=== PATIENT | male | born 1965 | race African-American/Black ===

== ENCOUNTER 2016-03-06 10:40 | Emergency (ER) | payer MEDICARE, OTHER ==
[~2016-03-06] VITALS: Ht 185.4 cm; Wt 116.1 kg
[2016-03-06] MEDS ORDERED: DILANTIN100 MG ORAL (10:56)
[2016-03-06] MEDS ORDERED: HUMALOG 75/255 UNIT1 SUBQ (10:56)
[2016-03-06] MEDS ORDERED: METFORMIN HCL1000 M1 ORAL (10:56)
[2016-03-06] MEDS ORDERED: ASPIR 8181 MG ORAL (10:56)
[2016-03-06] MEDS ORDERED: ACETAMINOPHEN-1 EAC1 ORAL (11:28)
[2016-03-06] MEDS ORDERED: Tylenol #3 tab (300mg/30mg) ORAL ONE (11:30)
[2016-03-06 11:40] VITALS: BP 132/80
[2016-03-06 11:44] VITALS: BP 132/80
--- NOTE | 2016-03-07 07:56 | Emergency Room Report ---
History of Present Illness General Chief Complaint: Lower Extremity Injury Source: Patient Present Illness HPI 50-year-old male presents ED complaining of pain to both legs x5 days. Denies trauma. Has history of diabetes and diabetic neuropathy. Takes gabapentin states it is not helping. States the pain as a 10 out of 10, sharp, electric in nature, radiating from the feet up to both thighs bilaterally. No aggravating relieving factors. accucheck in ED is 283. Denies any other associated symptoms Allergies: Coded Allergies: No Known Allergies (Unverified , 03/06/16) Patient History Past Medical History: DM, seizures Past Surgical History: none Pertinent Family History: none Social History: Denies: alcohol use, drug use, smoking Immunizations: UTD Reviewed Nursing Documentation: PMH: Agreed, PSxH: Agreed Nursing Documentation-PMH Hx Diabetes: Yes Hx Seizures: Yes Review of Systems All Other Systems: negative except mentioned in HPI Physical Exam Vital Signs Date Time Temp Pulse Resp B/P Pulse Ox O2 Delivery O2 Flow Rate FiO2 03/06/16 10:49 98.1 131 20 100 Room Air 03/06/16 11:40 132/80 Sp02 EP Interpretation: reviewed, normal General Appearance: alert, GCS 15, non-toxic, mild distress Head: normocephalic, atraumatic Eyes: bilateral eye PERRL, bilateral eye normal inspection ENT: hearing grossly normal, normal pharynx, no angioedema, normal voice Neck: full range of motion, supple/symm/no masses Respiratory: chest non-tender, lungs clear, normal breath sounds, speaking full sentences Cardiovascular #1: regular rate, rhythm, no edema Cardiovascular #2: 2+ carotid (R), 2+ carotid (L), 2+ radial (R), 2+ radial (L) , 2+ dorsalis pedis (R), 2+ dorsalis pedis (L) Gastrointestinal: normal bowel sounds, non tender, soft, non-distended, no guarding, no rebound Rectal: deferred Genitourinary: normal inspection, no CVA tenderness Musculoskeletal: back normal, gait/station normal, normal range of motion, non- tender Neurologic: alert, oriented x3, responsive, motor strength/tone normal, sensory intact, speech normal Psychiatric: judgement/insight normal, memory normal, mood/affect normal, no suicidal/homicidal ideation Reflexes: 3+ bicep (R), 3+ bicep (L), 3+ tricep (R), 3+ tricep (L), 3+ knee (R) , 3+ knee (L) Skin: normal color, no rash, warm/dry, well hydrated Lymphatic: no adenopathy Medical Decision Making Diagnostic Impression: Primary Impression: Diabetic neuropathy Qualified Codes: E13.49 - Other specified diabetes mellitus with other diabetic neurological complication Additional Impression: Opioid dependence Qualified Codes: F11.29 - Opioid dependence with unspecified opioid-induced disorder ER Course 50-year-old male presents to ED with bilateral leg pain. No trauma. History of diabetic neuropathy Differential-diabetic neuropathy, chronic pain, uncontrolled diabetes Patient placed on stretcher. After initial history physical exam reveals an middle-aged male in mild distress. Full range of motion in bilateral lower extremities. No sensory deficit noted. No signs of foot ulcer skin breakdown. accucheck in ED is 283. I reviewed CURES; patient has multiple narcotic prescriptions filled on a monthly basis. Agreed to provide the patient with Tylenol No. 3 here and will discharge him with a three-day supply of Tylenol No. 3. He understands he will not receive anything stronger needs to followup with his PMD Patient understands the importance of tight glycemic control Diagnosis-diabetic neuropathy, opioid dependence Stable and discharged to home. Followup with PMD. Return to ED if symptoms recur or worsen Last Vital Signs Date Time Temp Pulse Resp B/P Pulse Ox O2 Delivery O2 Flow Rate FiO2 03/06/16 11:44 98.1 107 16 132/80 95 Room Air Status: improved Disposition: HOME, SELF-CARE Condition: Stable Scripts Acetaminophen With Codeine (T#3) (TYLENOL #3 TAB*) Y Tab 1 TAB ORAL Q8H Y for For Pain, #20 TAB Prov: SHIRLEY JORDAN M.D. 03/06/16 Patient Instructions: Diabetic Neuropathy SHIRLEY JORDAN M.D. Mar 07, 2016 07:56
== END 2016-03-06 11:45 | disposition home or self-care (01) ==
LOC: EMR 11:21
DX: E13.49 Other specified diabetes mellitus with other diabetic neurological complication (principal); M79.604 Pain in right leg; F11.29 Opioid dependence with unspecified opioid-induced disorder; Z86.69 Personal history of other diseases of the nervous system and sense organs
CPT/HCPCS: 82962; 99283

== ENCOUNTER 2016-03-27 01:16 | Emergency (ER) | payer MEDICARE, OTHER ==
[~2016-03-27] VITALS: Ht 185.4 cm; Wt 104.3 kg
[~2016-03-27 01:16] MED LIST: ACETAMINOPHEN-1 EAC1 ORAL; ASPIR 8181 MG ORAL; DILANTIN100 MG ORAL; HUMALOG 75/255 UNIT1 SUBQ; METFORMIN HCL1000 M1 ORAL
[2016-03-27 02:00] VITALS: BP 155/89
[2016-03-27] MEDS ORDERED: Ketorolac 30mg Inj IM ONE (02:00)
[2016-03-27] MEDS ORDERED: Morphine Sulfate 4mg/ml Inj IM ONE (02:00)
[2016-03-27 02:03] VITALS: BP 155/89
--- NOTE | 2016-03-30 07:12 | Emergency Room Report ---
History of Present Illness General Chief Complaint: Pain Source: Patient Present Illness HPI 51-year-old male presents to ED complaining of bilateral leg pain times one week. Denies trauma. Notes tingling, electric sensations in his bilateral feet radiating up his legs. Patient states he has history of diabetes and neuropathy. States that pain is sharp. 10 out of 10. Radiating up the legs bilaterally. No aggravating relieving factors. Denies fevers or chills. Denies leg or motor weakness. Denies bowel or bladder incontinence. States that his pain medications and gabapentin are not helping. Denies any other associated symptoms Allergies: Coded Allergies: No Known Allergies (Unverified , 03/06/16) Patient History Past Medical History: DM, seizures Past Surgical History: none Pertinent Family History: none Social History: Denies: alcohol use, drug use, smoking Immunizations: UTD Reviewed Nursing Documentation: PMH: Agreed, PSxH: Agreed Nursing Documentation-PMH Hx Diabetes: Yes Hx Seizures: Yes Review of Systems All Other Systems: negative except mentioned in HPI Physical Exam Vital Signs Date Time Temp Pulse Resp B/P Pulse Ox O2 Delivery O2 Flow Rate FiO2 03/27/16 01:34 98.1 97 16 155/89 96 Room Air Sp02 EP Interpretation: reviewed, normal General Appearance: no apparent distress, alert, GCS 15, non-toxic Head: normocephalic, atraumatic Eyes: bilateral eye PERRL, bilateral eye normal inspection ENT: hearing grossly normal, normal pharynx, no angioedema, normal voice Neck: full range of motion, supple/symm/no masses Respiratory: chest non-tender, lungs clear, normal breath sounds, speaking full sentences Cardiovascular #1: regular rate, rhythm, no edema Cardiovascular #2: 2+ carotid (R), 2+ carotid (L), 2+ radial (R), 2+ radial (L) , 2+ dorsalis pedis (R), 2+ dorsalis pedis (L) Gastrointestinal: normal bowel sounds, non tender, soft, non-distended, no guarding, no rebound Rectal: deferred Genitourinary: normal inspection, no CVA tenderness Musculoskeletal: back normal, gait/station normal, normal range of motion, non- tender Neurologic: alert, oriented x3, responsive, motor strength/tone normal, sensory intact, speech normal Psychiatric: judgement/insight normal, memory normal, mood/affect normal, no suicidal/homicidal ideation Reflexes: 3+ bicep (R), 3+ bicep (L), 3+ tricep (R), 3+ tricep (L), 3+ knee (R) , 3+ knee (L) Skin: normal color, no rash, warm/dry, well hydrated Lymphatic: no adenopathy Medical Decision Making Diagnostic Impression: Primary Impression: Diabetic neuropathy Qualified Codes: E13.49 - Other specified diabetes mellitus with other diabetic neurological complication Additional Impression: Opioid dependence Qualified Codes: F11.20 - Opioid dependence, uncomplicated ER Course Hospital Course 51-year-old male presents to ED with bilateral leg pain. History of neuropathy. No evidence of trauma Differential diagnoses include: Opioid dependence, diabetic neuropathy, malingering Clinical course Patient placed on stretcher. After initial history and physical I reviewed EMR. Patient has been here once before, seen by myself for similar presentation. I reviewed CURES and patient receives narcotic prescriptions on a monthly basis. Patient given pain medications here. However patient understands that he will not receive any prescriptions. Needs to followup with PMD Diagnosis - diabetic neuropathy, opioid dependence Stable and discharged to home. Followup with PMD. Return to ED if symptoms recur or worsen Last Vital Signs Date Time Temp Pulse Resp B/P Pulse Ox O2 Delivery O2 Flow Rate FiO2 03/27/16 02:03 98.1 82 16 155/89 96 Room Air Status: improved Disposition: HOME, SELF-CARE Condition: Stable Referrals: NOT CHOSEN IPA/,REFERRING (PCP) Patient Instructions: Diabetic Neuropathy SHIRLEY JORDAN M.D. Mar 30, 2016 07:12
== END 2016-03-27 02:03 | disposition home or self-care (01) ==
LOC: EMR 02:00
DX: E11.40 Type 2 diabetes mellitus with diabetic neuropathy, unspecified (principal); F11.20 Opioid dependence, uncomplicated
CPT/HCPCS: 96372; 99283; J1885; J2270

== ENCOUNTER 2016-06-03 21:49 | Emergency (ER) | payer MEDICARE, OTHER ==
[~2016-06-03] VITALS: Ht 185.4 cm; Wt 95.3 kg
[2016-06-03] MEDS ORDERED: HYDROmorphone 1mg/ml Carpuject IM ONE (22:00)
[2016-06-03] MEDS ORDERED: HYDROCODON-ACE1 EA15 ORAL (22:01)
[2016-06-03] MEDS ORDERED: HALOPERIDOL0.5 MG ORAL (22:02)
--- NOTE | 2016-06-03 22:02 | Emergency Room Report ---
History of Present Illness General Chief Complaint: To Be Triaged Source: Patient Present Illness HPI Is a 51-year-old male with poorly toe diabetes. He also has severe neuropathy and is wheelchair-bound. He presents with chief complaint of lower leg pain and numbness. This is on going issue but worse the last few days where he can' t sleep. He taking gabapentin and Tylenol with Codeine is not helping. Denies any trauma. Denies any fever or chills. Denies any edema. Pain is 10 out of 10. patient said that his hemoglobin A1c was 12, but now 10 two months ago. He has lost about 60 pounds already. Allergies: Coded Allergies: No Known Allergies (Unverified , 03/06/16) Patient History Past Medical History: see triage record, old chart reviewed, DM Past Surgical History: other Pertinent Family History: none Social History: Denies: smoking Immunizations: other Reviewed Nursing Documentation: PMH: Agreed, PSxH: Agreed Nursing Documentation-PMH Hx Diabetes: Yes Hx Seizures: Yes Review of Systems Eye: Denies: blurred vision, eye pain ENT: Denies: ear pain, nose congestion, throat swelling Respiratory: Denies: cough, shortness of breath Cardiovascular: Denies: chest pain, palpitations Gastrointestinal: Denies: abdominal pain, diarrhea, nausea, vomiting Musculoskeletal: Reports: joint pain, muscle pain, muscle stiffness, Denies: back pain Skin: Denies: rash Neurological: Denies: headache, numbness Endocrine: Denies: increased thirst, increased urine Hematologic/Lymphatic: Denies: easy bruising All Other Systems: negative except mentioned in HPI Physical Exam vitals unremarkable Sp02 EP Interpretation: reviewed, normal General Appearance: well appearing, no apparent distress, alert Head: normocephalic, atraumatic Eyes: bilateral eye EOMI, bilateral eye PERRL ENT: hearing grossly normal, normal pharynx Neck: full range of motion, supple, no meningismus Respiratory: chest non-tender, lungs clear, normal breath sounds Cardiovascular #1: regular rate, rhythm, no murmur Gastrointestinal: normal bowel sounds, non tender, no mass, no organomegaly, no bruit, non-distended Musculoskeletal: back normal Neurologic: alert, oriented x3, other - Minimal movement of lower extremities. Psychiatric: mood/affect normal Skin: warm/dry Medical Decision Making Diagnostic Impression: Primary Impression: Diabetic neuropathy Qualified Codes: E13.49 - Other specified diabetes mellitus with other diabetic neurological complication ER Course Patient presents with exacerbation of chronic pain. No evidence of trauma. No evidence of cauda equina syndrome. No evidence of spinal after abscess or neoplastic process. Pain better controlled now. We'll discharge him. He had an MRI done today. Does not know results. Status: improved Disposition: HOME, SELF-CARE Condition: Stable Scripts Hydrocodone/Acetaminophen 5-325* (HYDROCODONE/ACETAMINOPHEN 5-325*) 1 Each Tablet 1 TAB ORAL Q6H Y for For Pain, #30 TAB 0 Refills Prov: AURA BUCHANAN M.D. 06/03/16 Additional Instructions: Followup with your Dr. in 3-7 days. You may benefit from a pain specialist. Return if symptom worsen. AURA BUCHANAN M.D. Jun 03, 2016 22:02
[2016-06-03 22:10] VITALS: BP 140/95
[2016-06-03 22:14] VITALS: BP 140/95
== END 2016-06-03 22:15 | disposition home or self-care (01) ==
LOC: EMR 22:10
DX: E11.40 Type 2 diabetes mellitus with diabetic neuropathy, unspecified (principal); G89.29 Other chronic pain; M79.669 Pain in unspecified lower leg; Z99.3 Dependence on wheelchair
CPT/HCPCS: 96372; 99283; J1170

== ENCOUNTER 2016-06-23 13:04 | Emergency (ER) | payer MEDICARE, OTHER ==
[~2016-06-23] VITALS: Ht 185.4 cm; Wt 95.3 kg
[~2016-06-23 13:04] MED LIST changes: +HALOPERIDOL0.5 MG ORAL; +HYDROCODON-ACE1 EA15 ORAL
[2016-06-23 13:16] VITALS: BP 108/70
[2016-06-23] MEDS ORDERED: Norco 5mg/325mg tab ORAL ONE (13:45)
[2016-06-23] MEDS ORDERED: ACETAMINOPHEN-1 EAC1 ORAL (13:51)
[2016-06-23 14:17] VITALS: BP 108/70
--- NOTE | 2016-06-23 20:36 | Emergency Room Report ---
History of Present Illness General Chief Complaint: Pain Source: Patient, Medical Record Present Illness HPI The patient is a 51-year-old male with a history of diabetic neuropathy and bilateral leg weakness presenting for bilateral foot pain. The patient states the pain has been ongoing for the past month and is described as a 10 out of 10 sharp sensation. Pain does not radiate from the feet. Pain has no provoking or relieving factors. He states that he has been wheelchair-bound for the past 2 months and had an MRI of the back which she states showed damage to the spinal cord. The patient was seen in this emergency department for the same complaint on 06/04 and given prescription for [place]. The patient was to followup with primary doctor which he states he has not. He denies any other symptoms including chest pain, shortness of breath, fever, chills, rash, incontinence Allergies: Coded Allergies: No Known Allergies (Unverified , 03/06/16) Patient History Past Medical History: see triage record Pertinent Family History: none Reviewed Nursing Documentation: PMH: Agreed, PSxH: Agreed Nursing Documentation-PMH Past Medical History: No History, Except For Hx Hypertension: Yes - HYPERLIPIDEMIA Hx Diabetes: Yes Hx Seizures: Yes Review of Systems All Other Systems: negative except mentioned in HPI Physical Exam Vital Signs Date Time Temp Pulse Resp B/P Pulse Ox O2 Delivery O2 Flow Rate FiO2 06/23/16 13:10 98.1 101 16 108/70 97 Room Air Sp02 EP Interpretation: reviewed, normal General Appearance: no apparent distress, alert, GCS 15, non-toxic Head: normocephalic, atraumatic Eyes: bilateral eye PERRL, bilateral eye normal inspection ENT: hearing grossly normal, normal pharynx, no angioedema, normal voice Neck: full range of motion, supple/symm/no masses Musculoskeletal: normal inspection, no calf tenderness, decreased range of motion, tender - TTP over bilat entire foot Neurologic: alert, oriented x3, responsive, sensory intact, abnormal gait - in wheelchair Psychiatric: judgement/insight normal, memory normal, mood/affect normal, no suicidal/homicidal ideation Skin: normal color, no rash, warm/dry, well hydrated Medical Decision Making PA Attestation Dr. Bae is my supervising physician. Patient management was discussed with my supervising physician Diagnostic Impression: Primary Impression: Diabetic neuropathy Qualified Codes: E13.49 - Other specified diabetes mellitus with other diabetic neurological complication ER Course The patient is a 51-year-old male with a history of diabetic neuropathy and bilateral leg weakness presenting for bilateral foot pain. Differential diagnoses considered but not limited to: Diabetic neuropathy, paralysis, spinal cord injury, DVT, sprain, fracture Physical exam: Vitals within normal limits per no apparent distress The patient is in a wheelchair. There is decreased strength to bilateral lower legs. Decreased active range of motion to bilateral knees and ankles. Sensation is intact. There is no calf edema or tenderness. There is diffuse tenderness to palpation over bilateral feet. Skin is intact. No edema The patient is discharged home with pain medications and needs to followup with PMD and pain management for further care. ER precautions given Last Vital Signs Date Time Temp Pulse Resp B/P Pulse Ox O2 Delivery O2 Flow Rate FiO2 06/23/16 14:17 98.1 16 108/70 97 Room Air 06/23/16 13:10 101 Status: improved Disposition: HOME, SELF-CARE Condition: Improved Scripts Acetaminophen With Codeine (T#3) (TYLENOL #3 TAB*) Y Tab 1 TAB ORAL Q6HR Y for For Pain, #10 TAB Prov: BRENT MCFARLAND 06/23/16 Referrals: NOT CHOSEN IPA/,REFERRING (PCP) Patient Instructions: Diabetic Neuropathy Additional Instructions: I discussed my findings with the patient. All questions and concerns have been answered. Treatment and medication compliance have been addressed. I advised the patient that they need to follow up with PMD in 3-5 days. Return to ED if symptoms worsen, new symptoms arise, or if needed for any reason. Patient verbalized understanding of discharge instructions. The patient will followup with PMD and pain management. BRENT MCFARLAND June 23, 2016 20:36
== END 2016-06-23 14:20 | disposition home or self-care (01) ==
LOC: EMR 13:41
DX: E11.40 Type 2 diabetes mellitus with diabetic neuropathy, unspecified (principal); R52 Pain, unspecified; M79.672 Pain in left foot; M79.671 Pain in right foot; R53.1 Weakness; Z99.3 Dependence on wheelchair; I10 Essential (primary) hypertension; E78.5 Hyperlipidemia, unspecified; Z86.69 Personal history of other diseases of the nervous system and sense organs
CPT/HCPCS: 99283